=== PATIENT | male | born 1945 | race Caucasian/White ===

== ENCOUNTER 2019-07-05 12:32 | Emergency (ER) | payer MEDICARE, MEDICAID ==
[~2019-07-05] VITALS: Ht 170.2 cm; Wt 85.0 kg
[2019-07-05] MEDS ORDERED: SODIUM CHLORIDE 0.9% 1,000 ML IV ONE (13:50)
[2019-07-05 14:34] LABS: BASOPHILS % 0.5 % (0.0-2.0); EOSINOPHILS % 0.9 % (0.0-5.0); HEMATOCRIT. 44.7 % (42.0-52.0); HEMOGLOBIN. 15.3 g/dL (14.0-18.0); LYMPHOCYTES % 30.6 % (20.0-50.0); MEAN CORPUSCULAR HEMOGLOBIN 31.8 pg (28.0-32.0); MEAN CORPUSCULAR VOLUME 93.1 fL (80.0-94.0); MEAN PLATELET VOLUME 9.5 fl (7.4-10.4); MONOCYTES % 8.5 % (2.0-8.0); NEUTROPHILS % 59.5 % (40.0-76.0); PLATELET 182 x1000/uL (130-400); RED CELL DISTRIBUTION WIDTH 12.8 % (11.6-14.6)
[2019-07-05 14:42] LABS: CHLORIDE 104 mEq/L (98-107)
[2019-07-05 15:51] LABS: CLARITY URINE CLEAR (CLEAR); COLOR URINE YELLOW (YELLOW); KETONES URINE NEGATIVE (NEGATIVE); LEUKOCYTE ESTERASE URINE NEGATIVE (NEGATIVE); NITRITE URINE NEGATIVE (NEGATIVE); OCCULT BLOOD URINE NEGATIVE (NEGATIVE); PH URINE 7.5 (4.5-8.0); PROTEIN URINE NEGATIVE (NEGATIVE); SPECIFIC GRAVITY URINE 1.006 (1.005-1.030); UROBILINOGEN URINE 0.2 E.U./dL (0.2-1.0)
[2019-07-05 16:56] VITALS: BP 153/85
== END 2019-07-05 16:59 | disposition home or self-care (01) ==
LOC: ER 12:32
DX: R53.1 Weakness (principal); I10 Essential (primary) hypertension; E78.00 Pure hypercholesterolemia, unspecified; N40.0 Benign prostatic hyperplasia without lower urinary tract symptoms
CPT/HCPCS: 36415; 70450; 71045; 80053; 81003; 83605; 83880; 84484; 85025; 96360; 96361; 99284; J7030

== ENCOUNTER 2021-03-26 06:35 | Inpatient (IN) | payer MEDICARE, MEDICAID ==
[~2021-03-26] VITALS: Ht 165.1 cm; Wt 102.1 kg
[2021-03-26] MEDS ORDERED: FENO134C MT (08:01)
[2021-03-26] MEDS ORDERED: AMLO5TAB88 MT (08:01)
[2021-03-26] MEDS ORDERED: METO-539 MT (08:01)
[2021-03-26] MEDS ORDERED: CARB200T6 MT (08:01)
[2021-03-26] MEDS ORDERED: METF-873 MT (08:01)
[2021-03-26] MEDS ORDERED: CAPT25TA3 MT (08:01)
[2021-03-26] MEDS ORDERED: FINA1TAB18 MT (08:02)
[2021-03-26 08:06] LABS: HEMATOCRIT 38.7 % (42.0-52.0); HEMOGLOBIN 13.3 g/dL (14.0-18.0); MEAN CORPUSCULAR HEMOGLOBIN 32.4 pg (28.0-32.0); MEAN CORPUSCULAR VOLUME 94.2 fL (80.0-94.0); PLATELET 204 x1000/uL (130-400); RED BLOOD CELL COUNT 4.11 mill/uL (4.7-6.1); RED CELL DISTRIBUTION WIDTH 12.8 % (11.6-14.6)
[2021-03-26] MEDS ORDERED: NITROGLYCERIN 50MCG/ML 10ML VIAL (CATH LAB) IV ONE (08:50)
[2021-03-26] MEDS ORDERED: NICARDIPINE 100MCG/ML 10ML VIAL (CATH LAB) IV ONE (08:50)
[2021-03-26] MEDS ORDERED: HEPARIN SODIUM 1,000 UNIT/1ML VIAL IV ONE (08:50)
[2021-03-26] MEDS ORDERED: MIDAZOLAM HCL 2 MG/2 ML VIAL ONE (08:53)
[2021-03-26] MEDS ORDERED: HEPARIN 1000 UNITS/ML 10ML ONE (08:54)
[2021-03-26] MEDS ORDERED: IODIXANOL 320MG/ML 100 ML BOTTLE IV ONE ×2 (08:54→10:17)
[2021-03-26] MEDS ORDERED: LIDOCAINE HCL 1% 20ML VIAL (Pyxis) INJ ONE (08:54)
[2021-03-26] MEDS ORDERED: FENTANYL CITRATE/PF 50MCG/ML 2ML VIAL ONE (08:54)
[2021-03-26 09:13] LABS: CHLORIDE 105 mEq/L (98-107)
[2021-03-26] MEDS ORDERED: IOHEXOL-300 100 ML BOTTLE ONE (10:17)
[2021-03-26] MEDS ORDERED: CLOPIDOGREL 75MG TABLET ONE ×2 (10:47→10:50)
[2021-03-26] MEDS ORDERED: ASPIRIN 325MG TABLET ONE (10:47)
[2021-03-26] MEDS ORDERED: ATROPINE SULFATE 1MG/10ML SYR IV PRN (11:00)
[2021-03-26] MEDS ORDERED: ACETAMINOPHEN 325MG TABLET PO PRN (11:00)
[2021-03-26] MEDS ORDERED: MORPHINE SULFATE 2 MG/ML CPJ (NOT FOR IM USE) IV PRN (11:00)
[2021-03-26] MEDS ORDERED: DEXTROSE 50% WATER 50ML SYRINGE IV PRN (11:00)
[2021-03-26] MEDS ORDERED: ONDANSETRON HCL 4MG/2ML INJ IV PRN (11:00)
[2021-03-26] MEDS: INSULIN LISPRO 100 UNITS/ML SUBCUT SCH ×2 (13:00→21:00)
[2021-03-26] MEDS: BLOOD SUGAR DIAGNOSTIC STRIP TEST SCH ×3 (14:48→21:00)
[2021-03-26] MEDS ORDERED: METOPROLOL TARTRATE 50MG TABLET PO SCH (21:00)
[2021-03-26] MEDS ORDERED: ATORVASTATIN CALCIUM 40MG TABLET PO SCH ×2 (21:00→23:00)
[2021-03-26 22:30] VITALS: BP 148/63
[2021-03-26] MEDS ORDERED: SODIUM CHL 0.45% + KCL 20MEQ/L 1,000 ML IV ONE (23:00)
[2021-03-26] MEDS: METOPROLOL TARTRATE 50MG TABLET PO SCH (23:06)
[2021-03-26 23:30] VITALS: BP 147/77
[2021-03-26 23:32] VITALS: BP 148/79
[2021-03-27] VITALS (9 sets, daily range): BP systolic 114–148; BP diastolic 64–83
[2021-03-27] MEDS: BLOOD SUGAR DIAGNOSTIC STRIP TEST SCH ×3 (06:33→17:21)
[2021-03-27 07:07] LABS: CHLORIDE 104 mEq/L (98-107)
[2021-03-27 07:09] LABS: BASOPHILS % 0.5 % (0.0-2.0); EOSINOPHILS % 1.1 % (0.0-5.0); HEMATOCRIT. 40.4 % (42.0-52.0); HEMOGLOBIN. 13.5 g/dL (14.0-18.0); LYMPHOCYTES % 28.5 % (20.0-50.0); MEAN CORPUSCULAR HEMOGLOBIN 32.4 pg (28.0-32.0); MEAN CORPUSCULAR VOLUME 96.6 fL (80.0-94.0); MEAN PLATELET VOLUME 9.3 fl (7.4-10.4); MONOCYTES % 7.6 % (2.0-8.0); NEUTROPHILS % 62.3 % (40.0-76.0); PLATELET 208 x1000/uL (130-400); RED BLOOD CELL COUNT 4.18 mill/uL (4.7-6.1); RED CELL DISTRIBUTION WIDTH 12.9 % (11.6-14.6)
[2021-03-27] MEDS: INSULIN LISPRO 100 UNITS/ML SUBCUT SCH ×3 (07:20→17:20)
[2021-03-27] MEDS ORDERED: CLOPIDOGREL 75MG TABLET PO SCH (09:00)
[2021-03-27] MEDS ORDERED: AMLODIPINE 5MG TABLET PO SCH ×2 (09:00)
[2021-03-27] MEDS ORDERED: ASPIRIN 325MG TABLET PO SCH (09:00)
[2021-03-27] MEDS ORDERED: NALOXONE HCL 0.4MG/ML VIAL IV PRN (09:45)
[2021-03-27] MEDS: CARBAMAZEPINE 200MG TABLET PO SCH ×2 (10:57→18:10)
[2021-03-27] MEDS: METOPROLOL TARTRATE 50MG TABLET PO SCH (10:57)
== END 2021-03-27 22:36 | disposition home or self-care (01) | DRG 247 ==
LOC: CCL 06:35 → 3WST 21:01
PROVIDERS: ADMIT Internal Medicine Cardiovascular Disease; ATTEND Internal Medicine Cardiovascular Disease
PROC: 027034Z Dilation of Coronary Artery, One Artery with Drug-eluting Intraluminal Device, Percutaneous Approach (ICD-10-PCS; principal; 2021-03-26)
PROC: 4A023N7 Measurement of Cardiac Sampling and Pressure, Left Heart, Percutaneous Approach (ICD-10-PCS; 2021-03-26)
PROC: B2151ZZ Fluoroscopy of Left Heart using Low Osmolar Contrast (ICD-10-PCS; 2021-03-26)
PROC: B2111ZZ Fluoroscopy of Multiple Coronary Arteries using Low Osmolar Contrast (ICD-10-PCS; 2021-03-26)
DX: I25.10 Atherosclerotic heart disease of native coronary artery without angina pectoris (principal); I25.82 Chronic total occlusion of coronary artery; E11.9 Type 2 diabetes mellitus without complications; E78.5 Hyperlipidemia, unspecified; I10 Essential (primary) hypertension; Z79.84 Long term (current) use of oral hypoglycemic drugs; Z79.899 Other long term (current) drug therapy; Z79.82 Long term (current) use of aspirin; Z79.4 Long term (current) use of insulin
CPT/HCPCS: 36415; 80048; 82962; 83036; 85025; 85027; 85347; 92928; 93005; 93458; C1760; C1769; C1874; C1887; C1893; J1644; J2250; J3010; J3480; J3490; Q9967

== ENCOUNTER 2022-03-08 11:22 | Inpatient (IN) | payer OTHER, MEDICAID ==
[~2022-03-08] VITALS: Ht 165.1 cm; Wt 88.5 kg
[~2022-03-08 11:22] MED LIST: AMLO5TAB88 MT; CAPT25TA3 MT; CARB200T6 MT; FENO134C21 MT; FINA1TAB18 MT; METF-873 MT; METO-539 MT
[2022-03-08 12:57] LABS: BASOPHILS % 0.5 % (0.0-2.0); EOSINOPHILS % 1.8 % (0.0-5.0); HEMATOCRIT. 33.4 % (42.0-52.0); LYMPHOCYTES % 26.9 % (20.0-50.0); MEAN CORPUSCULAR HEMOGLOBIN 29.5 pg (28.0-32.0); MEAN CORPUSCULAR VOLUME 89.3 fL (80.0-94.0); MEAN PLATELET VOLUME 9.2 fl (7.4-10.4); MONOCYTES % 10.3 % (2.0-8.0); NEUTROPHILS % 60.5 % (40.0-76.0); PLATELET 165 x1000/uL (130-400); RED BLOOD CELL COUNT 3.74 mill/uL (4.7-6.1)
[2022-03-08 12:59] LABS: CHLORIDE 105 mEq/L (98-107)
[2022-03-08] MEDS ORDERED: ASPIRIN 81MG TABLET PO ONE ×2 (13:00→14:15)
[2022-03-08] MEDS ORDERED: FUROSEMIDE 40MG/4ML VIAL IV ONE (14:15)
[2022-03-08] MEDS ORDERED: NITROGLYCERIN OINT 1GM/INCH UDPKT TD ONE (14:15)
[2022-03-08] MEDS ORDERED: DIPHENHYDRAMINE 50MG/ML VIAL IV PRN (15:45)
[2022-03-08] MEDS ORDERED: ONDANSETRON HCL 4MG/2ML INJ IV PRN (15:45)
[2022-03-08] MEDS ORDERED: IPRATROPIUM/ALBUTEROL 0.5-3(2.5)MG/3ML NEB HHN PRN (15:45)
[2022-03-08 18:20] VITALS: BP 125/69
[2022-03-08 20:00] VITALS: BP 134/66
[2022-03-08] MEDS ORDERED: DEXTROSE 50% WATER 50ML SYRINGE IV PRN (20:30)
[2022-03-08] MEDS: INSULIN LISPRO 100 UNITS/ML SUBCUT SCH (21:00)
[2022-03-08] MEDS: BLOOD SUGAR DIAGNOSTIC STRIP TEST SCH (21:22)
[2022-03-09] VITALS: BP 159/70
[2022-03-09 04:00] VITALS: BP 133/59
[2022-03-09] MEDS ORDERED: ICOS1CAP MT (04:20)
[2022-03-09] MEDS ORDERED: CARV6.2548 MT (04:20)
[2022-03-09] MEDS ORDERED: CLOP-31 MT (04:20)
[2022-03-09] MEDS ORDERED: LOSA1TAB37 MT (04:20)
[2022-03-09] MEDS: BLOOD SUGAR DIAGNOSTIC STRIP TEST SCH ×5 (05:46→21:19)
[2022-03-09] MEDS: INSULIN LISPRO 100 UNITS/ML SUBCUT SCH ×4 (05:46→21:00)
[2022-03-09 08:00] VITALS: BP 163/73
[2022-03-09] MEDS: CLONIDINE 0.1MG TABLET PO PRN ×2 (08:04→16:22)
[2022-03-09 08:30] LABS: BASOPHILS % 0.8 % (0.0-2.0); EOSINOPHILS % 2.2 % (0.0-5.0); HEMATOCRIT. 34.7 % (42.0-52.0); HEMOGLOBIN. 11.3 g/dL (14.0-18.0); LYMPHOCYTES % 30.8 % (20.0-50.0); MEAN CORPUSCULAR HEMOGLOBIN 29.6 pg (28.0-32.0); MEAN CORPUSCULAR VOLUME 90.8 fL (80.0-94.0); MEAN PLATELET VOLUME 9.4 fl (7.4-10.4); NEUTROPHILS % 56.2 % (40.0-76.0); PLATELET 164 x1000/uL (130-400); RED BLOOD CELL COUNT 3.82 mill/uL (4.7-6.1); RED CELL DISTRIBUTION WIDTH 14.8 % (11.6-14.6)
[2022-03-09] MEDS: FUROSEMIDE 40MG/4ML VIAL IV SCH (08:47)
[2022-03-09] MEDS: AMLODIPINE 5MG TABLET PO SCH (08:48)
[2022-03-09] MEDS ORDERED: PNEUMOCOCCAL 23-VAL P-SAC VAC 0.5 ML IM ONE (09:00)
[2022-03-09 09:19] LABS: CHLORIDE 105 mEq/L (98-107)
[2022-03-09 12:00] VITALS: BP 150/76
[2022-03-09 16:00] VITALS: BP 163/84
[2022-03-09 20:31] VITALS: BP 150/73
[2022-03-10] VITALS: BP 165/75
[2022-03-10] MEDS: ACETAMINOPHEN 325MG TABLET PO PRN ×2 (00:48→06:37)
[2022-03-10 07:46] LABS: BASOPHILS % 0.7 % (0.0-2.0); EOSINOPHILS % 2.6 % (0.0-5.0); HEMOGLOBIN. 12.1 g/dL (14.0-18.0); LYMPHOCYTES % 33.2 % (20.0-50.0); MEAN CORPUSCULAR HEMOGLOBIN 29.7 pg (28.0-32.0); MEAN CORPUSCULAR VOLUME 88.7 fL (80.0-94.0); MEAN PLATELET VOLUME 9.3 fl (7.4-10.4); MONOCYTES % 8.8 % (2.0-8.0); NEUTROPHILS % 54.7 % (40.0-76.0); PLATELET 191 x1000/uL (130-400); RED BLOOD CELL COUNT 4.05 mill/uL (4.7-6.1); RED CELL DISTRIBUTION WIDTH 14.6 % (11.6-14.6)
[2022-03-10 07:58] VITALS: BP 159/81
[2022-03-10] MEDS: BLOOD SUGAR DIAGNOSTIC STRIP TEST SCH ×4 (08:10→20:51)
[2022-03-10] MEDS: INSULIN LISPRO 100 UNITS/ML SUBCUT SCH ×4 (08:10→20:51)
[2022-03-10] MEDS: AMLODIPINE 5MG TABLET PO SCH (08:31)
[2022-03-10] MEDS: FUROSEMIDE 40MG/4ML VIAL IV SCH (08:31)
[2022-03-10 09:13] LABS: CHLORIDE 108 mEq/L (98-107)
[2022-03-10] MEDS: CLOPIDOGREL 75MG TABLET PO SCH (10:31)
[2022-03-10] MEDS ORDERED: POTASSIUM CHLORIDE 20MEQ TABLET SR PO NR (11:00)
[2022-03-10 11:52] VITALS: BP 156/74
[2022-03-10] MEDS: CARBAMAZEPINE 200MG TABLET PO SCH ×2 (12:23→16:57)
[2022-03-10 16:00] VITALS: BP 161/78
[2022-03-10] MEDS: METOPROLOL TARTRATE 50MG TABLET PO SCH (16:57)
[2022-03-10] MEDS: CARVEDILOL 6.25 MG TABLET PO SCH (16:57)
[2022-03-10 20:00] VITALS: BP 147/77
[2022-03-11] VITALS: BP 144/77
[2022-03-11 04:00] VITALS: BP 154/74
[2022-03-11] MEDS: BLOOD SUGAR DIAGNOSTIC STRIP TEST SCH ×2 (07:42→12:19)
[2022-03-11] MEDS: INSULIN LISPRO 100 UNITS/ML SUBCUT SCH ×2 (07:42→12:19)
[2022-03-11 08:00] VITALS: BP 171/87
[2022-03-11 08:45] LABS: BASOPHILS % 0.6 % (0.0-2.0); EOSINOPHILS % 2.2 % (0.0-5.0); HEMATOCRIT. 38.2 % (42.0-52.0); HEMOGLOBIN. 12.7 g/dL (14.0-18.0); LYMPHOCYTES % 33.1 % (20.0-50.0); MEAN CORPUSCULAR HEMOGLOBIN 29.6 pg (28.0-32.0); MEAN CORPUSCULAR VOLUME 88.7 fL (80.0-94.0); MEAN PLATELET VOLUME 9.2 fl (7.4-10.4); MONOCYTES % 8.3 % (2.0-8.0); NEUTROPHILS % 55.8 % (40.0-76.0); PLATELET 213 x1000/uL (130-400); RED BLOOD CELL COUNT 4.31 mill/uL (4.7-6.1)
[2022-03-11 08:52] LABS: CHLORIDE 103 mEq/L (98-107)
[2022-03-11] MEDS: METOPROLOL TARTRATE 50MG TABLET PO SCH (09:12)
[2022-03-11] MEDS: CLOPIDOGREL 75MG TABLET PO SCH (09:12)
[2022-03-11] MEDS: CARBAMAZEPINE 200MG TABLET PO SCH ×2 (09:12→12:43)
[2022-03-11] MEDS: AMLODIPINE 5MG TABLET PO SCH (09:12)
[2022-03-11] MEDS: CARVEDILOL 6.25 MG TABLET PO SCH (09:13)
[2022-03-11] MEDS: FUROSEMIDE 40MG/4ML VIAL IV SCH (09:13)
[2022-03-11 12:00] VITALS: BP 161/80
[2022-03-11] MEDS: CLONIDINE 0.1MG TABLET PO PRN (12:43)
[2022-03-11 13:16] VITALS: BP 161/80
== END 2022-03-11 13:00 | disposition home or self-care (01) | DRG 291 ==
LOC: ER 11:22 → 7WST 15:19
PROVIDERS: ADMIT Internal Medicine; ATTEND Internal Medicine
DX: I11.0 Hypertensive heart disease with heart failure (principal); I50.31 Acute diastolic (congestive) heart failure; I24.9 Acute ischemic heart disease, unspecified; I25.10 Atherosclerotic heart disease of native coronary artery without angina pectoris; E78.00 Pure hypercholesterolemia, unspecified; Z20.822 Contact with and (suspected) exposure to COVID-19; E11.9 Type 2 diabetes mellitus without complications; N40.0 Benign prostatic hyperplasia without lower urinary tract symptoms; Z98.61 Coronary angioplasty status
CPT/HCPCS: 36415; 71045; 80048; 80053; 82962; 83880; 84484; 85025; 87426; 90732; 93005; 93306; 93970; 99285; J1815; J1940